=== PATIENT | male | born 1935 | race Caucasian/White ===

== ENCOUNTER 2021-04-16 16:44 | Inpatient (IN) ==
[2021-04-16 17:08] LABS: ABS Eosinophils 0.3 10^3/ul (0-0.6); ABS Lymphocytes 2.2 10^3/ul (1.0-4.8); ABS Monocytes 0.8 10^3/ul (0-0.8); ABS Neutrophils 5.6 10^3/ul (1.5-7.7); Hematocrit 44 % (42-52); Hemoglobin 15.2 g/dL (14.0-18.0); Lymphocyte % 24.6 %; Mean Corpuscular HGB Conc 35 g/dL (31-36); Mean Corpuscular Hemoglobin 31 pg (27-31); Mean Corpuscular Volume 88 fL (80-94); Mean Platelet Volume 8.9 fL (7.4-10.4); Platelet Count 142 10^3/uL (150-450); Red Blood Count 4.97 10^6 /uL (4.18-5.48); Red Cell Distribution Width 13 % (10-15); White Blood Count 8.9 10^3/uL (3.5-10.8)
[2021-04-16 17:25] LABS: ALT 16 U/L (7-52); AST 23 U/L (13-39); Albumin 4.3 g/dL (3.2-5.2); Albumin/Globulin Ratio 1.6 (1-3); Alkaline Phosphatase 52 U/L (35-149); Anion Gap 6 mmol/L (2-11); Blood Urea Nitrogen 16 mg/dL (6-24); CO2 Carbon Dioxide 28 mmol/L (22-32); Calcium 9.3 mg/dL (8.6-10.3); Chloride 97 mmol/L (101-111); Globulin 2.7 g/dL (2-4); Glucose 98 mg/dL (70-100); INR 1.1 (0.86-1.15); Potassium 3.9 mmol/L (3.5-5.0); Sodium 131 mmol/L (135-145); eGFR CKD-EPI 66.2 (>60)
[2021-04-16 17:36] LABS: Troponin I 0.09 ng/mL (<0.03)
[2021-04-16] MEDS ORDERED: Al Hydrox/Mg Hydrox/Simet LIQ 30 ML UDC PO PRN (21:44)
[2021-04-16 23:02] LABS: Troponin I 0.13 ng/mL (<0.03)
[2021-04-16] MEDS ORDERED: Heparin DRIP 25,000 UNITS BAG 25,000 UNITS/500 ML BAG IV SCH (23:45)
[2021-04-16] MEDS ORDERED: Heparin 5000 UNITS/ML 1 mL VIAL IV SCH (23:45)
[2021-04-17 05:24] LABS: ABS Basophils 0.1 10^3/ul (0-0.2); ABS Eosinophils 0.4 10^3/ul (0-0.6); ABS Lymphocytes 2.3 10^3/ul (1.0-4.8); ABS Monocytes 0.9 10^3/ul (0-0.8); ABS Neutrophils 7.9 10^3/ul (1.5-7.7); Eosinophil % 3.5 %; Hematocrit 46 % (42-52); Hemoglobin 15.8 g/dL (14.0-18.0); Lymphocyte % 20.1 %; Mean Corpuscular HGB Conc 35 g/dL (31-36); Mean Corpuscular Hemoglobin 31 pg (27-31); Mean Corpuscular Volume 89 fL (80-94); Mean Platelet Volume 8.8 fL (7.4-10.4); Platelet Count 145 10^3/uL (150-450); Red Blood Count 5.16 10^6 /uL (4.18-5.48); Red Cell Distribution Width 12 % (10-15); White Blood Count 11.6 10^3/uL (3.5-10.8)
[2021-04-17 05:42] LABS: Anion Gap 5 mmol/L (2-11); CO2 Carbon Dioxide 28 mmol/L (22-32); Calcium 8.9 mg/dL (8.6-10.3); Chloride 98 mmol/L (101-111); Potassium 4.4 mmol/L (3.5-5.0); Sodium 131 mmol/L (135-145)
[2021-04-17 05:48] LABS: Blood Urea Nitrogen 16 mg/dL (6-24); Cholesterol 152 mg/dL; Glucose 113 mg/dL (70-100); HDL Cholesterol 36.9 mg/dL; LDL Cholesterol 90 mg/dL; Triglycerides 125 mg/dL; eGFR CKD-EPI 66.2 (>60)
[2021-04-17 05:58] LABS: Troponin I 0.12 ng/mL (<0.03)
[2021-04-17 08:43] LABS: Troponin I 0.11 ng/mL (<0.03)
[2021-04-17] MEDS ORDERED: NS 0.9% 1000 ml BAG 1,000 ML IV SCH ×2 (09:45→15:00)
[2021-04-17] MEDS: OMEGA-3 FATTY ACID 1000 mg(NF) PO SCH ×2 (09:49→21:00)
[2021-04-17] MEDS ORDERED: Heparin 1,000 UNIT/ML 10 ml (10,000 UNITS) CATHLAB/DIALYSIS ONE (10:33)
[2021-04-17] MEDS ORDERED: Midazolam 5 mg/5 ml VIAL 1 mg/ml 5 ml VIAL (5 mg) ONE (10:33)
[2021-04-17] MEDS ORDERED: VERAPAMIL 2.5 MG/ML 2 ML VIAL ** 5 mg/2 ml ONE (10:33)
[2021-04-17] MEDS ORDERED: fentaNYL 100 mcg/2 ml 50 MCG/ML VIAL ONE (10:33)
[2021-04-17] MEDS ORDERED: Heparin 2 UNITS/ML 1000 mls 3,000 ML IV ONE (10:33)
[2021-04-17] MEDS ORDERED: nitroGLYCERIN DRIP 25,000 MCG/250 ML BTL ONE (10:34)
[2021-04-17] MEDS ORDERED: Lidocaine 1% VIAL 10 MG/ML VIAL ONE (10:34)
[2021-04-17] MEDS ORDERED: Iohexol 350 (CONTRAST) 200 ML MDV IV ONE ×3 (10:34→11:52)
[2021-04-17] MEDS ORDERED: Bivalirudin 250 MG VIAL ONE (11:38)
[2021-04-18 04:47] LABS: ABS Eosinophils 0.3 10^3/ul (0-0.6); ABS Lymphocytes 1.5 10^3/ul (1.0-4.8); ABS Monocytes 0.8 10^3/ul (0-0.8); ABS Neutrophils 4.3 10^3/ul (1.5-7.7); Hematocrit 36 % (42-52); Hemoglobin 12.2 g/dL (14.0-18.0); Lymphocyte % 21.1 %; Mean Corpuscular HGB Conc 34 g/dL (31-36); Mean Corpuscular Hemoglobin 30 pg (27-31); Mean Corpuscular Volume 90 fL (80-94); Mean Platelet Volume 8.8 fL (7.4-10.4); Platelet Count 119 10^3/uL (150-450); Red Blood Count 4.02 10^6 /uL (4.18-5.48); Red Cell Distribution Width 12 % (10-15); White Blood Count 6.9 10^3/uL (3.5-10.8)
[2021-04-18 05:12] LABS: Potassium 2.9 mmol/L (3.5-5.0); eGFR CKD-EPI 90.1 (>60)
[2021-04-18 05:13] LABS: Calcium 5.9 mg/dL (8.6-10.3)
[2021-04-18 06:12] LABS: Calcium 8.4 mg/dL (8.6-10.3); eGFR CKD-EPI 68.4 (>60)
[2021-04-18] MEDS: OMEGA-3 FATTY ACID 1000 mg(NF) PO SCH (11:10)
[2021-04-18 12:40] LABS: ABS Eosinophils 0.3 10^3/ul (0-0.6); ABS Lymphocytes 1.7 10^3/ul (1.0-4.8); ABS Monocytes 0.8 10^3/ul (0-0.8); ABS Neutrophils 5.3 10^3/ul (1.5-7.7); Eosinophil % 3.2 %; Hematocrit 43 % (42-52); Hemoglobin 14.8 g/dL (14.0-18.0); Lymphocyte % 20.8 %; Mean Corpuscular HGB Conc 34 g/dL (31-36); Mean Corpuscular Hemoglobin 31 pg (27-31); Mean Corpuscular Volume 90 fL (80-94); Mean Platelet Volume 9.1 fL (7.4-10.4); Nucleated Red Blood Cells % 0.1; Platelet Count 147 10^3/uL (150-450); Red Blood Count 4.79 10^6 /uL (4.18-5.48); Red Cell Distribution Width 13 % (10-15)
[2021-04-18 14:12] VITALS: BP 144/73
== END 2021-04-18 15:20 | disposition home or self-care (01) | DRG 247 ==
LOC: ED 16:44 → EDHOLD 22:17 → INTOOBSV 22:17 → MEDTELE 04-17 01:36 → ICU 04-17 12:31
PROVIDERS: ADMIT Internal Medicine; ATTEND Internal Medicine